=== PATIENT | female | born 1985 | race American Indian/Alaskan Native ===

== ENCOUNTER 2018-12-06 20:57 | Emergency (ER) | payer OTHER ==
[2018-12-06 22:15] VITALS: RESP 18; TEMP 98.2
[2018-12-06] MEDS ORDERED: Naproxen 550 mg Tab PO STA (22:17)
--- NOTE | 2018-12-06 22:50 | ED PDOC ---
Arrival/HPI - General Chief Complaint: Lower Extremity Problem/Injury Time Seen by Provider: 12/06/18 21:34 Historian: Patient - History of Present Illness Narrative History of Present Illness (Text): 12/06/18 22:15 Sandy Espinoza is a 33 year old female who presents to the Emergency department status post mechanical fall. Patient states she was at work when she tripped and fell down the stairs, injuring her left foot. Patient now complaining of pain and swelling to the area. Otherwise, patient denies any numbness/bruising to the area, decreased range of motion, ankle pain, head trauma, other injury, or any other complaints. Time/Duration: Other (today) Symptom Course: Unchanged Activities at Onset: Light Context: Home, Tripped Past Medical History - Provider Review Nursing Documentation Reviewed: Yes - Infectious Disease Hx of Infectious Diseases: None - Reproductive Currently : No - Cardiac Hx Cardiac Disorders: No - Pulmonary Hx Respiratory Disorders: No - Gastrointestinal Hx Gastrointestinal Disorders: No - Psychiatric Hx Substance Use: Yes - Surgical History Other/Comment: R knee surgery. R foot surgery with screws Family/Social History - Physician Review Nursing Documentation Reviewed: Yes Family/Social History: Unknown Family HX Smoking Status: Light Smoker < 10 Cigarettes Daily Hx Alcohol Use: Yes Frequency of alcohol use: Socially Hx Substance Use: Yes Substance used: marijuana Allergies/Home Meds Allergies/Adverse Reactions: Allergies codeine Adverse Reaction (Verified 12/06/18 21:58) SHORTNESS OF BREATH Review of Systems - Physician Review All systems were reviewed & negative as marked: Yes - Review of Systems Constitutional: Normal. absent: Fevers Gastrointestinal: absent: Abdominal Pain, Nausea, Vomiting Musculoskeletal: Arthralgias (+left foot pain) Physical Exam Vital Signs Reviewed: Yes Vital Signs Temp Pulse Resp BP Pulse Ox 12/06/18 22:03 98.2 F 85 18 155/103 H 98 Temperature: Afebrile Blood Pressure: Hypertensive Pulse: Regular Respiratory Rate: Normal Appearance: Positive for: Well-Appearing, Non-Toxic, Comfortable Pain Distress: Mild Mental Status: Positive for: Alert and Oriented X 3 - Systems Exam Head: Present: Atraumatic, Normocephalic Lower Extremity: Present: NORMAL PULSES, Normal ROM, Tenderness (Tenderness over left 5th metatarsal), Swelling (Swelling over left 5th metatarsal), Neurovascularly Intact, Capillary Refill < 2 s. No: Edema, Erythema, Deformity, Temperature Abnormalties Neurological: Present: GCS=15, CN II-XII Intact, Speech Normal, Motor Func Grossly Intact, Normal Sensory Function Skin: Present: Warm, Dry, Normal Color. No: Rashes Psychiatric: Present: Alert, Oriented x 3, Normal Insight, Normal Concentration Medical Decision Making ED Course and Treatment: 12/06/18 22:15 Impression: 33 year old female complaining of left foot pain status injury. Plan: -- XR Left Foot -- Naproxen -- Reassess and disposition Progress Notes: XR left foot : + pineda fracture, no dislocation, as read by PA On reevaluation, patient remains awake alert and oriented 3 in no acute distress. XR results and diagnosis of pineda fracture d/w the patient. Case d/w podiatry resident, who will come and evaluate the patient and apply a posterior short leg splint. Podiatry resident at the bedside evaluating the patient, splint applied by resident. Patient instructed on crutch walking. Advised to follow up with podiatry referral in 1-2 days without fail. Advised to take medication as prescribed. Return to the emergency room at any time for any new or worsening symptoms. Patient states she fully agrees with and understands discharge instructions. States that she agrees with the plan and disposition. Verbalized and repeated discharge instructions and plan. I have given the patient opportunity to ask any additional questions. - RAD Interpretation Radiology Orders: 12/06/18 22:17 FOOT LEFT 3 VIEWS ROUTINE [RAD] Stat - Medication Orders Current Medication Orders: Discontinued Medications Naproxen (Anaprox Ds) 550 mg PO ONCE STA Stop: 12/06/18 22:18 Last Admin: 12/06/18 22:29 Dose: 550 mg - PA / BINDING DYER / Resident Statement MD/DO has reviewed & agrees with the documentation as recorded. - Scribe Statement The provider has reviewed the documentation as recorded by the Krystal Ambrocio Provider Scribe Attestation: All medical record entries made by the Scribe were at my direction and personally dictated by me. I have reviewed the chart and agree that the record accurately reflects my personal performance of the history, physical exam, medical decision making, and the department course for this patient. I have also personally directed, reviewed, and agree with the discharge instructions and disposition. Disposition/Present on Arrival - Present on Arrival Any Indicators Present on Arrival: No History of DVT/PE: No History of Uncontrolled Diabetes: No Urinary Catheter: No History of Decub. Ulcer: No History Surgical Site Infection Following: None - Disposition Have Diagnosis and Disposition been Completed?: Yes Diagnosis: Pineda fracture Disposition: HOME/ ROUTINE Disposition Time: 00:00 Patient Plan: Discharge Patient Problems: Current Active Problems Problem Status Onset Pineda fracture Acute Condition: STABLE Discharge Instructions (ExitCare): Foot Fracture (DC) Additional Instructions: Thank you for letting us take care of you today. You were treated for left pineda fracture. The emergency medical care you received today was directed at your acute symptoms. If you were prescribed any medication, please fill it and take as directed. It may take several days for your symptoms to resolve. Return to the Emergency Department if your symptoms worsen, do not improve, or if you have any other problems. Please follow up with podiatry referral in 2 days for re-evaluation and follow up. Bring any paperwork you were given at discharge with you along with any medications you are taking to your follow up visit. Our treatment cannot replace ongoing medical care by a primary care provider (PCP) outside of the emergency department. Thank you for allowing the [facility] team to be part of your care today. If you had an X-Ray : A Radiologist will review the ED reading if any change in treatment is needed we will contact you. Prescriptions: Naproxen 500 mg PO BID #30 tab Referrals: Liborio Rosenthal MD [[facility]] - Follow up with primary Forms: [employer] (Faroese), WORK NOTE
--- NOTE | 2018-12-07 00:18 | CP.PCM.CON ---
Past Patient History - Infectious Disease Hx of Infectious Diseases: None - Past Social History Smoking Status: Light Smoker < 10 Cigarettes Daily - CARDIAC Hx Cardiac Disorders: No - PULMONARY Hx Respiratory Disorders: No - GASTROINTESTINAL Hx Gastrointestinal Disorders: No - PSYCHIATRIC Hx Substance Use: Yes - SURGICAL HISTORY Other/Comment: R knee surgery. R foot surgery with screws Meds Home Medications: Home Medication List Medication Instructions Recorded Confirmed Type Naproxen 500 mg PO BID #30 tab 12/06/18 Rx Allergies/Adverse Reactions: Allergies Allergy/AdvReac Type Severity Reaction Status Date / Time codeine AdvReac SHORTNESS Verified 12/06/18 21:58 OF BREATH Results - Vital Signs Recent Vital Signs: Last Vital Signs Temp 98.2 F 12/06/18 22:03 Pulse 85 12/06/18 22:03 Resp 18 12/06/18 22:03 BP 155/103 H 12/06/18 22:03 Pulse Ox 98 12/06/18 22:03 Assessment & Plan - Date & Time Date: 12/07/18 Time: 00:18
[2018-12-07 00:53] VITALS: BP 146/87; PULSE 72; O2SAT 99
--- NOTE | 2018-12-07 10:55 | RAD ---
Date of service: 12/06/2018 PROCEDURE: Left Foot Radiographs. HISTORY: pain COMPARISON: None. FINDINGS: BONES: There is a nondisplaced transverse fracture through the proximal 5th metatarsal JOINTS: Normal. SOFT TISSUES: Normal. OTHER FINDINGS: None. IMPRESSION: There is a nondisplaced transverse fracture through the proximal 5th metatarsal
== END 2018-12-07 00:47 | disposition home or self-care (01) ==
LOC: ED 20:57
DX: S92.355A Nondisplaced fracture of fifth metatarsal bone, left foot, initial encounter for closed fracture (principal); W10.9XXA Fall (on) (from) unspecified stairs and steps, initial encounter; F17.210 Nicotine dependence, cigarettes, uncomplicated